=== PATIENT | male | born 2000 | race Caucasian/White ===

== ENCOUNTER 2020-04-15 04:10 | Emergency (ER) | payer BC ==
[~2020-04-15] VITALS: Ht 193 cm; Wt 90.0 kg
[2020-04-15 04:40] VITALS: Ht 193 cm; Wt 90.0 kg
[2020-04-15 07:13] VITALS: BP 120/68
== END 2020-04-15 07:13 | disposition home or self-care (01) ==
LOC: ED 04:10
DX: L02.214 Cutaneous abscess of groin (principal)